=== PATIENT | female | born 1995 | race Caucasian/White ===

== ENCOUNTER 2021-02-19 22:01 | Emergency (ER) | payer MEDICAID ==
[~2021-02-19] VITALS: Ht 167.6 cm; Wt 61.7 kg
[2021-02-19 22:39] VITALS: BP_SYST 127
--- NOTE | 2021-02-19 23:02 | NUR ---
ER Dr. Garcia in [facility] examining patient.
[2021-02-19] MEDS ORDERED: DIPHENHYDRAMINE INJ 50 MG/ML VIAL IM ONE (23:45)
[2021-02-19] MEDS ORDERED: PROCHLORPERAZINE EDISYLATE 10 MG/2 ML VIAL IM ONE (23:45)
[2021-02-19] MEDS ORDERED: KETOROLAC TROMETHAMINE 30 MG VIAL IM ONE (23:45)
--- NOTE | 2021-02-20 | NUR ---
PATIENT AAOX4 AND AMBULATORY C/O HEADACHE X 5 DAYS. PER PATIENT TOOK ANALEGICS WITH NO RELIEF. + NAUSEA AND DIZZINESS. STATES HAVING PRESSURE BEHIND BOTH EYES. VSS. CURRENTLY STATING 10/10 ON THE PAIN SCALE.
--- NOTE | 2021-02-20 00:27 | NUR ---
Medications given as ordered, health teaching provided and verbalized understanding
[2021-02-20 01:27] VITALS: BP_SYST 127
--- NOTE | 2021-02-20 01:27 | NUR ---
Patient given written and verbal discharge instructions and verbalizes understanding. DR. DEANA FELTON MD discussed with patient the results and treatment provided. Patient in stable condition. ID arm band removed. Patient educated on pain management and to follow up with PMD. Pain Scale 0/10. Opportunity for questions provided and answered. Medication side effect fact sheet provided.
== END 2021-02-20 01:27 | disposition home or self-care (01) ==
LOC: SED 22:01
DX: G43.909 Migraine, unspecified, not intractable, without status migrainosus (principal)
CPT/HCPCS: 70450; 76376; 81025; 96372; 99284; J0780; J1200; J1885